=== PATIENT | male | born 1975 | race American Indian/Alaskan Native ===

== ENCOUNTER 2021-10-01 16:15 | Inpatient (IN) | payer OTHER ==
--- NOTE | 2021-10-01 16:29 | Emergency Department Report ---
HPI - General Chief Complaint: Neuro Symptoms/Deficit Time Seen by Provider: 10/01/21 16:17 - HPI HPI: 46-year-old male with no known past medical history presents via EMS as a stroke alert due to acute right-sided weakness. According to the EMS report, just prior to arrival the patient reported feeling dizzy, he sat down on the ground and then syncopized, falling back and losing consciousness for about 10 seconds according to bystanders. When he awoke he developed significant right-sided weakness which is more significant in the lower extremities and the upper extremity. He is also slightly confused although he is oriented. He does report that his blood pressure has been elevated for the past week. Other than the weakness and when prompted, noted numbness of the right lower extremity, he denies any symptoms currently. According to the EMS report his fingerstick blood glucose was 71. His blood pressure was 170/90 with heart rate of 95 and 100% saturation on room air. His last known well time was 1540 today. Further details of the HPI are limited due to the patient's current clinical condition. ED Past Medical Hx - Past Medical History Previous Medical History?: No ED Review of Systems ROS: Stated complaint: STROKE Other details as noted in HPI Comment: All other systems reviewed and negative Constitutional: denies: chills, fever Eyes: denies: eye pain, vision change ENT: denies: throat pain, congestion Respiratory: denies: cough, shortness of breath Cardiovascular: syncope. denies: chest pain, palpitations Gastrointestinal: denies: abdominal pain, nausea, vomiting Genitourinary: denies: dysuria, frequency Musculoskeletal: denies: back pain Skin: denies: rash, lesions Neurological: weakness, numbness. denies: headache, confusion Physical Exam - Physical Exam Physical Exam: GENERAL: Well developed and well nourished. No acute distress HEAD: Normocephalic. No obvious signs of trauma. ENT: Moist mucous membranes. EYES: Extraocular movements are intact. Pupils are equal round and reactive to light bilaterally NECK: Supple. Full ROM is intact. Trachea is midline. LUNGS: Nonlabored breathing. Equal chest rise bilaterally. Clear to auscultation bilaterally. CARDIOVASCULAR: Regular rate and rhythm. No murmurs or rubs. VASCULAR: Cap refill < 2 seconds. 2+ peripheral pulses in all 4 extremities. ABDOMEN: Abdomen is soft and nondistended. There is no significant tenderness, guarding or rebound. SKIN: Skin is warm and dry NEURO: Patient is awake, alert, and oriented. social and human services assistant II-XII grossly intact. There is mild weakness of the right upper extremity and no ability to move the right lower extremity. Sensation is intact throughout the face and bilateral upper extremities as well as the abdomen and left lower extremity but there is decreased sensation to light touch noted over the right distal leg and foot. Normal speech. NIH stroke scale score 5 MUSCULOSKELETAL: No obvious deformities. No significant tenderness. Normal ROM throughout. BACK/SPINE: No costovertebral angle tenderness. ED Medical Decision Making - Lab Data Result diagrams: 10/01/21 16:35 10/01/21 16:35 Labs 10/01/21 10/01/21 10/01/21 16:35 16:35 16:35 WBC 6.1 RBC 5.23 H Hgb 14.6 Hct 44.6 MCV 85 MCH 28 MCHC 33 RDW 13.7 Plt Count 206 Lymph % (Auto) 24.5 [place] % (Auto) 9.8 H Eos % (Auto) 1.5 Baso % (Auto) 0.6 Lymph # (Auto) 1.5 [place] # (Auto) 0.6 Eos # (Auto) 0.1 Baso # (Auto) 0.0 Seg Neutrophils % 63.6 Seg Neutrophils # 3.9 PT 13.9 INR 0.96 APTT 26.4 Thrombin Time 17.5 Sodium 135 L Potassium 4.0 Chloride 98.2 Carbon Dioxide 22 Anion Gap 19 BUN 11 Creatinine 1.1 Estimated GFR > 60 BUN/Creatinine Ratio 10 Glucose 141 H Calcium 8.7 Total Bilirubin 0.30 AST 39 ALT 39 Alkaline Phosphatase 124 Total Creatine Kinase 375 H CK-MB (CK-2) 3.1 CK-MB (CK-2) Rel Index 0.8 Troponin T < 0.010 Total Protein 7.0 Albumin 4.2 Albumin/Globulin Ratio 1.5 Plasma/Serum Alcohol 10/01/21 16:35 WBC RBC Hgb Hct MCV MCH MCHC RDW Plt Count Lymph % (Auto) [place] % (Auto) Eos % (Auto) Baso % (Auto) Lymph # (Auto) [place] # (Auto) Eos # (Auto) Baso # (Auto) Seg Neutrophils % Seg Neutrophils # PT INR APTT Thrombin Time Sodium Potassium Chloride Carbon Dioxide Anion Gap BUN Creatinine Estimated GFR BUN/Creatinine Ratio Glucose Calcium Total Bilirubin AST ALT Alkaline Phosphatase Total Creatine Kinase CK-MB (CK-2) CK-MB (CK-2) Rel Index Troponin T Total Protein Albumin Albumin/Globulin Ratio Plasma/Serum Alcohol < 0.01 - Radiology Data Radiology results: report reviewed - Medical Decision Making 46-year-old male brought in by EMS as a stroke alert after experiencing a syncopal episode and then waking up with weakness of the right side, right lower extremity more than the right upper extremity. His last known normal time was 1540. On physical examination he has no ability to move the right lower extremity and has distal decreased sensation to light touch of that extremity. He has mild weakness of the right upper extremity but no sensory loss. Cranial nerves are intact and there is no facial droop. His NIH stroke scale score is 5. Although the patient's symptoms may be sequela of Matthew's paralysis as a result of possible seizure-like activity, stroke alert was initiated with full set of labs and CT as well as CTA of the head and neck to assess for evidence of large vessel occlusion I spoke with Dr. Mendoza of teleneurology who states that she does not feel comfortable giving TPA in the patient's deficits are resolving when she spoke to the patient. She agrees that the patient's symptoms may be a manifestation of Matthew's paralysis. At 4:40 PM, the patient is now fully moving his right lower extremity and says all of his deficits have resolved. Labs reveal no significant leukocytosis or anemia. Kidney function is normal and there are no significant electrolyte abnormalities. At 4:43 PM I spoke with radiology who states that Noncon CT of the head reveals no acute abnormalities CTA of the head and neck reveals no evidence of large vessel occlusion but there is a focal area of narrowing which is moderate to high-grade in the MCA trifurcation on the right. I spoke with Dr. Mendoza at 645 regarding the CTA findings and she states that with these findings she recommends admission for MRI. In addition, the patient will need further work-up for syncope. Aspirin has been ordered. The results and need for admission were discussed with patient expressed understanding agreement with the plan of care. 6:50 PM I spoke with Dr. Valdez, the on-call hospitalist regarding the case who accepts the patient for admission will assume care. Critical Care Time: Yes Critical care time in (mins) excluding proc time.: 40 Critical care attestation.: If time is entered above; I have spent that time in minutes in the direct care of this critically ill patient, excluding procedure time. Critical care time was spent in the evaluation/assessment, work-up, and management of stroke and syncope requiring stroke alert initiation with advanced imaging, discussion with specialist, and frequent reassessment and reevaluation. ED Disposition Clinical Impression: Stroke, Syncope, Hypertension, Abnormal computed tomography angiography of head Disposition: ADMITTED INPATIENT Is pt being admited?: Yes Condition: Serious - Assessment Assessment Interval: Baseline - Level of Consciousness 1a. Level of Consciousness: alert/keenly responsive - LOC Questions 1b. LOC Questions: answers both correctly - LOC Command 1c. LOC Commands: performs tasks correctly - Best Gaze 2. Best Gaze: normal - Visual 3. Visual: no visual loss - Facial Palsy 4. Facial Palsy: normal symmetrical movement - Motor Arm 5a. Motor Arm Left: no drift 5b. Motor Arm Right: no drift - Motor Leg 6a. Motor Leg Left: no drift 6b. Motor Leg Right: no movement - Limb Ataxia 7. Limb Ataxia: absent - Sensory 8. Sensory: mild/moderate sensory loss - Best Language 9. Best Language: no aphasia - Dysarthria 10. Dysarthria: normal - Extinction and Inattention 11. Extinction/Inattention: no abnormality - Scoring Total Score: 5 Stroke Severity: Moderate Stroke
[2021-10-01 16:48] LABS: Basophils % (Auto) 0.6 % (0.0-1.8); Eosinophils # (Auto) 0.1 K/mm3 (0.0-0.4); Eosinophils % (Auto) 1.5 % (0.0-4.3); Hematocrit 44.6 % (35.5-45.6); Hemoglobin 14.6 gm/dl (11.8-15.2); Lymphocytes # (Auto) 1.5 K/mm3 (1.2-5.4); Lymphocytes % (Auto) 24.5 % (13.4-35.0); Mean Corpuscular HGB Conc 33 % (32-34); Mean Corpuscular Volume 85 fl (84-94); Monocytes # (Auto) 0.6 K/mm3 (0.0-0.8); Monocytes % (Auto) 9.8 % (0.0-7.3); Platelet Count 206 K/mm3 (140-440); Red Blood Count 5.23 M/mm3 (3.65-5.03); Red Cell Distribution Width 13.7 % (13.2-15.2)
--- NOTE | 2021-10-01 16:49 | Cat Scan Report ---
CT head/brain wo con INDICATION / CLINICAL INFORMATION: 46 years Male; CODE STROKE CALL ER MAIN AT 8199 Stroke symptoms. TECHNIQUE: Routine CT head without contrast. All CT scans at this location are performed using CT dos e reduction for ALARA by means of automated exposure control. COMPARISON: None. FINDINGS: BRAIN / INTRACRANIAL CONTENTS: No acute hemorrhage, mass effect, midline shift, hydrocephalus, or acu te, large territorial infarct. No signs of significant atrophy or chronic infarct. No significant whi te matter abnormality seen. CRANIOCERVICAL JUNCTION: No significant abnormality. ORBITS: No significant abnormality of visualized orbits. SINUSES / MASTOIDS: Mild to moderate mucosal thickening in the ethmoids. Mild mucosal thickening seen in the right maxillary antrum. ADDITIONAL FINDINGS: None. IMPRESSION: 1. No focal mass, hemorrhage, hydrocephalus, or acute, large territorial infarct. CODE STROKE: Exam Completed (ONCOLOGY NAVIGATOR/CDT): 10/01/2021 3:33 PM Exam Reviewed (ONCOLOGY NAVIGATOR/CDT): 3:38 PM Time of Communication (ONCOLOGY NAVIGATOR/CDT): 3:42 PM Licensed Practitioner Receiving Report: Dr. Verdin Signer Name: Anthony Rios MD, III Signed: 10/01/2021 4:45 PM Workstation Name: [id number]
[2021-10-01 16:58] LABS: INR 0.96 (0.87-1.13)
[2021-10-01 16:59] LABS: Partial Thromboplastin Time 26.4 Sec. (24.2-36.6); Thrombin Time 17.5 Sec. (15.1-19.6)
--- NOTE | 2021-10-01 17:09 | Cat Scan Report ---
CT angio head INDICATION / CLINICAL INFORMATION: 46 years Male; CODE STROKE CALL ER MAIN AT 8199 OMNI 350 100 ML stroke sx. TECHNIQUE: Thin cut axial images obtained through the head during IV bolus contrast administration. S agittal, coronal, and 3 plane MIP reconstructions performed by the technologist. NASCET type criteria used evaluate stenoses. Automated exposure control utilized for radiation reduction purposes. . Poor bolus timing or low injection rate suspected. COMPARISON: None available. FINDINGS: INTERNAL CAROTID ARTERIES: No significant narrowing appreciated. Minimal atherosclerotic disease note d. VERTEBROBASILAR SYSTEM: No significant narrowing appreciated. DISTAL BRANCHES: Distal branches of the anterior, middle, and posterior cerebral arteries are fairly symmetric in appearance and number. Focal area of moderate to high-grade narrowing is seen in an MCA trifurcation branch on the left. ANEURYSM: None identified. ADDITIONAL FINDINGS: Remainder of the surrounding soft tissues are grossly normal. IMPRESSION: 1. No evidence of large vessel occlusion on this CTA of the head. [place] 2. Focal area of narrowing suggested in an MCA trifurcation branch on the right. Signer Name: Anthony Rios MD, III Signed: 10/01/2021 5:04 PM Workstation Name: [id number]
--- NOTE | 2021-10-01 17:10 | Emergency Department Report ---
Blank Doc - Documentation Documentation: [facility] Consult Note # Demographics Consult Type: Acute Stroke Level 1 (0-4.5 hrs) Patient Location: Emergency Room First Name: Reinaldo Last Name: Anil Age: 46 Gender: Male Facility: [facility] Time of Initial Page ( Time): 10/01/2021, 16:05 Time of Return Call ( Time): 10/01/2021, 16:05 # HPI History: 46yo M presents after feeling dizziness, sat down and then had a short syncopal episode. after having right sided weakness pt reports he drank a beer and then felt dizziness. he sat down. then has a difficult time explainign what happened pt seen after CT as getting a scan before be could be evaluated # Scores Time of exam and NIHSS (): 10/01/2021, 16:20 Level of Consciousness 1a: [0] = Alert; keenly responsive LOC Questions 1b: [0] = Answers both questions correctly LOC Commands 1c: [0] = Performs both tasks correctly Best Gaze 2: [0] = Normal Visual 3: [0] = No visual loss Facial Palsy 4: [0] = Normal symmetrical movements Motor Arm Left 5a: [0] = No drift Motor Arm Right 5b: [0] = No drift Motor Leg Left 6a: [0] = No drift Motor Leg Right 6b: [0] = No drift Limb Ataxia 7: [0] = Absent Sensory 8: [0] = Normal Best Language 9: [0] = No aphasia Dysarthria 10: [0] = Normal Extinction and Inattention 11: [0] = No abnormality NIHSS Total: 0 # PMH-FH-SH Past Medical History: hypertension # Assessment Impression: 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 syncope much less likely with the weakness after # Plan Thrombolytic/Intervention: NOT IV Thrombolysis or IA Intervention candidate Thrombolytic Exclusion (< 3 hour window): non-disabling deficit Intraarterial Exclusion: non-disabling Thrombolytic/Intraarterial Exclusion: IV thrombolytic and IA intervention considered but not recommended as this patient's symptoms are not clinically consistent with an assumed diagnosis of stroke Imaging: (urgency: STAT): CT Angiogram Head and CT Angiogram Neck AND call back with results if abnormal Imaging: (urgency: routine): MRI Brain with AND without contrast Diagnostic Test: EEG # [employer] Telemedicine: Interactive 2 way audio and visual telecommunication technology was utilized during this visit
--- NOTE | 2021-10-01 17:13 | XRay Report ---
CHEST 1 VIEW 10/01/2021 4:43 PM INDICATION / CLINICAL INFORMATION: stroke. COMPARISON: None available. FINDINGS: SUPPORT DEVICES: None. HEART / MEDIASTINUM: No significant abnormality. LUNGS / PLEURA: No significant pulmonary or pleural abnormality. No pneumothorax. ADDITIONAL FINDINGS: Gastric distention. IMPRESSION: No significant infiltrate. Signer Name: Ryne Fernandez MD Signed: 10/01/2021 5:09 PM Workstation Name: [id number]
--- NOTE | 2021-10-01 17:21 | Cat Scan Report ---
CT angio neck INDICATION / CLINICAL INFORMATION: 46 years Male; CODE STROKE CALL ER MAIN AT 8199 OMNI 350 100 ML stroke sx. TECHNIQUE: Thin cut axial images obtained through the head during IV bolus contrast administration. S agittal, coronal, and 3 plane MIP reconstructions performed by the technologist. NASCET type criteria used evaluate stenoses. All CT scans at this location are performed using CT dose reduction for ALAR A by means of automated exposure control. . COMPARISON: None available. FINDINGS: ARCH: Normal aortic arch branching suggested. Right subclavian artery is not well visualized, which m ay be related to dense contrast in the right subclavian vein. CAROTID ARTERIES: The visualized common and internal carotid arteries are widely patent. VERTEBRAL ARTERIES: Slight right dominant vertebral system seen. No significant stenosis appreciated. ADDITIONAL FINDINGS: Mild degenerative changes in the cervical spine. Mild to moderate mucosal thickening seen in the maxillary antra and ethmoids. IMPRESSION: No significant stenosis appreciated on this CTA of the neck. Signer Name: Anthony Rios MD, III Signed: 10/01/2021 5:17 PM Workstation Name: [id number]
[2021-10-01 18:02] LABS: Creatine Kinase MB 3.1 ng/mL (0.0-4.0)
[2021-10-01 18:03] LABS: Alanine Aminotransferase 39 units/L (7-56); Albumin 4.2 g/dL (3.9-5); BUN/Creatinine Ratio 10; Blood Urea Nitrogen 11 mg/dL (9-20); Calcium 8.7 mg/dL (8.4-10.2); Hemolysis Index 7
[2021-10-01 18:27] LABS: Bilirubin,Urine NEG (Negative); Blood,Urine NEG (Negative); Color,Urine Colorless (Yellow); Protein,Urine <15 mg/dL mg/dL (Negative); Urobilinogen,Urine < 2.0 mg/dL (<2.0)
[2021-10-01 18:35] LABS: Amphetamine Screen,Urine Negative; Benzodiazepines Screen,Urine Negative; Cannabinoid Screen,Urine Negative; Cocaine Screen,Urine Negative; Methadone Screen,Urine Negative; Opiate Screen,Urine Negative
[2021-10-01] MEDS ORDERED: ASPIRIN EC 325 MG TAB PO ONE (18:52)
[2021-10-01] MEDS ORDERED: ACETAMINOPHEN 325 MG TAB PO PRN (18:53)
[2021-10-01] MEDS ORDERED: METOCLOPRAMIDE 10 MG TAB PO PRN (18:53)
[2021-10-01] MEDS ORDERED: oxyCODONE /ACETAMINOPHEN 5-325MG TAB PO PRN (18:53)
[2021-10-01] MEDS ORDERED: HYDROmorphone 1 MG/1 ML INJ IV PRN (18:53)
[2021-10-01] MEDS ORDERED: ONDANSETRON 4 MG/2 ML INJ IV PRN (18:53)
[2021-10-01] MEDS ORDERED: ALBUTEROL 2.5 MG/3 ML NEBU IH PRN (18:53)
[2021-10-01] MEDS ORDERED: PROMETHAZINE 25 MG RECT SUPP PR PRN (18:53)
[2021-10-01] MEDS ORDERED: MAGNESIUM HYDROXIDE (MOM) ORAL LIQD UDC PO PRN (18:53)
--- NOTE | 2021-10-01 18:56 | History and Physical Report ---
History of Present Illness Chief complaint: I passed out History of present illness: 46 YO Male with No PMH presents to ED for evaluation. Patient reports "I get dizzy and I passed out". Patient states that he was in his usual state of health and experienced a sudden onset of dizziness followed by loss of consciousness. Patient awakened to have slurred speech with right-sided weakness. EMS was notified and upon arrival the patient was found to be in distress with a neurologic deficit. A code stroke was called and the patient was transported to [facility] for further care and evaluation of the aforementioned symptoms. The patient was seen and evaluated in the emergency department. All lab and imaging studies reviewed. Patient found to have symptoms consistent with CVA. The patient was admitted to telemetry and initiated on CVA protocol due to increased risk of worsening symptoms. Patient denies fever, chills, chest pain, palpitation, productive cough, skin rash or recent contact, trauma, known exposure to COVID-19. No prior admission for review. No medication listed at time of admission for reconciliation. Advanced care planning conducted in ED. Teleneurology consulted in ED. Past History Past Medical History: No medical history, other (Reviewed ) Past Surgical History: No surgical history, Other (Reviewed) Social history: single. denies: smoking, alcohol abuse, prescription drug abuse Family history: hypertension Medications and Allergies Allergies Allergy/AdvReac Type Severity Reaction Status Date / Time No Known Allergies Allergy Verified 10/01/21 16:37 Active Meds: Active Medications Acetaminophen (Acetaminophen 325 Mg Tab) 650 mg PO Q4H PRN PRN Reason: Pain, Mild (1-3) Albuterol (Albuterol 2.5 Mg/3 Ml Nebu) 2.5 mg IH Q3HRT PRN PRN Reason: Shortness Of Breath Aspirin (Aspirin 325 Mg Tab) 325 mg PO QDAY JEFFREY Atorvastatin Calcium (Atorvastatin 40 Mg Tab) 40 mg PO QHS JEFFREY Bisacodyl (Bisacodyl 10 Mg Rect Supp) 10 mg AR QDAY PRN PRN Reason: Constipation Hydromorphone HCl (Hydromorphone 1 Mg/1 Ml Inj) 0.5 mg IV Q23H PRN PRN Reason: Pain , Severe (7-10) Magnesium Hydroxide (Magnesium Hydroxide (Mom) Oral Liqd Udc) 30 ml PO Q4H PRN PRN Reason: Constipation Metoclopramide HCl (Metoclopramide 10 Mg Tab) 10 mg PO Q6H PRN PRN Reason: Nausea And Vomiting Ondansetron HCl (Ondansetron 4 Mg/2 Ml Inj) 4 mg IV Q8H PRN PRN Reason: Nausea And Vomiting Oxycodone/Acetaminophen (Oxycodone /Acetaminophen 5-325mg Tab) 1 tab PO Q16H PRN PRN Reason: Pain, Moderate (4-6) Promethazine HCl (Promethazine 25 Mg Rect Supp) 25 mg AR Q6H PRN PRN Reason: Nausea And Vomiting Sodium Chloride (Sodium Chloride 0.9% 10 Ml Flush Syringe) 10 ml INJ PRN PRN PRN Reason: LINE FLUSH Review of Systems Constitutional: no weight loss, no weight gain, no fever, no chills Ears, nose, mouth and throat: no deferred, no ear pain, no ear discharge, no nasal congestion Cardiovascular: no chest pain, no palpitations, no rapid/irregular heart beat, no edema, no syncope Respiratory: no cough, no excessive sputum Gastrointestinal: no abdominal pain, no vomiting, no change in bowel habits, no hematemesis Genitourinary Male: no hematuria, no flank pain, no discharge, no urinary frequency, no urinary hesitancy Rectal: no pain, no incontinence, no bleeding Musculoskeletal: no arm numbness/tingling, no low back pain, no leg numbness/tingling Integumentary: no rash, no pruritis, no sores, no wounds, no jaundice Neurological: syncope, gait dysfunction, motor disturbance Psychiatric: no anxiety, no memory loss, no change in sleep habits, no sleep disturbances, no hypersomnia Endocrine: no cold intolerance, no heat intolerance, no polyphagia, no polydipsia, no polyuria Hematologic/Lymphatic: no easy bruising, no easy bleeding, no lymphedema Allergic/Immunologic: no urticaria, no allergic rhinitis, no wheezing, no persistent infections Exam - Constitutional Vitals: Temp Pulse Resp BP Pulse Ox 98.6 F 86 21 175/87 100 10/01/21 16:51 10/01/21 16:45 10/01/21 16:45 10/01/21 16:45 10/01/21 16:45 General appearance: Present: mild distress - EENT Eyes: Present: PERRL ENT: hearing intact, clear oral mucosa - Neck Neck: Present: supple, normal ROM - Respiratory Respiratory effort: normal Respiratory: bilateral: CTA - Cardiovascular Heart Sounds: Present: S1 & S2. Absent: rub, click - Extremities Extremities: pulses symmetrical, No edema Peripheral Pulses: within normal limits - Abdominal General gastrointestinal: Present: soft, non-tender, non-distended, normal bowel sounds Male genitourinary: Present: normal - Integumentary Integumentary: Present: clear, warm, dry - Musculoskeletal Musculoskeletal: gait normal, strength equal bilaterally - Psychiatric Psychiatric: appropriate mood/affect, intact judgment & insight - Neurologic Neurologic: CNII-XII intact, moves all extremities HEART Score - HEART Score Troponin: Troponin T < 0.010 ng/mL (0.00-0.029) 10/01/21 16:35 Results - Labs CBC & Chem 7: 10/01/21 16:35 10/01/21 16:35 Labs: Abnormal lab results 10/01/21 10/01/21 10/01/21 Range/Units 16:35 16:35 Unknown RBC 5.23 H (3.65-5.03) M/mm3 [place] % (Auto) 9.8 H (0.0-7.3) % Sodium 135 L (137-145) mmol/L Glucose 141 H (75-100) mg/dL Total Creatine Kinase 375 H (55-170) units/L Urine pH 8.0 H (5.0-7.0) Assessment and Plan - Patient Problems (1) CVA (cerebral vascular accident) Current Visit: Yes Status: Acute Plan to address problem: CVA protocol: CT head, neuro check, seizure cautions, aspiration precautions, fall precautions, physical therapy consulted, Occupational Therapy consulted, speech therapy consulted, antiplatelet therapy, echocardiogram, carotid Doppler. (2) DVT prophylaxis Current Visit: Yes Status: Acute Plan to address problem: SCD to bilateral lower extremities while in bed (3) Advance care planning Current Visit: Yes Status: Acute Plan to address problem: Disease education conducted, care plan discussed, diagnoses discussed, prognosis discussed, patient is full code. Patient knowledges understanding and agreement with care plan, +30 minutes.
[2021-10-01 23:20] LABS: Creatine Kinase MB 2.4 ng/mL (0.0-4.0)
--- NOTE | 2021-10-02 08:15 | Progress Note ---
Assessment and Plan Assessment and plan: 46 YO Male with No PMH presents to ED for evaluation of slurred speech with right-sided weakness. EMS was notified and upon arrival the patient was found to be in distress with a neurologic deficit. A code stroke was called and the patient was transported to [facility] for further care and evaluation of the a forementioned symptoms. The patient was seen and evaluated in the emergency department. All lab and imaging studies reviewed. Blood pressure in the emergency department was noted to be as high as 205/110. Patient found to have symptoms consistent with CVA. The patient was admitted to telemetry and initiated on CVA protocol due to increased risk of worsening symptoms. CVA Accelerated hypertension. (Undiagnosed) 10/02/2021. Continue CVA protocol. CTA of the head and neck reveals focal area of narrowing suggested in MCA trifurcation branch on the right. Follow-up echocardiogram and order MRI. We will also order neurology consultation. PT/OT. Continue secondary prevention with aspirin and Lipitor. Allow for permissive hypertension for now and then start antihypertensive medications History Interval history: No new issues overnight. Hospitalist Physical - Constitutional Vitals: Temp Pulse Resp BP Pulse Ox 98.2 F 83 18 135/85 99 10/02/21 03:36 10/02/21 03:36 10/02/21 03:36 10/02/21 03:36 10/02/21 03:36 General appearance: Present: no acute distress - EENT Eyes: Present: PERRL, EOM intact ENT: hearing intact, clear oral mucosa, dentition normal - Neck Neck: Present: supple, normal ROM - Respiratory Respiratory effort: normal Respiratory: bilateral: CTA - Cardiovascular Rhythm: regular Heart Sounds: Present: S1 & S2. Absent: gallop, rub - Extremities Extremities: no ischemia, No edema, Full ROM - Abdominal General gastrointestinal: soft, non-tender, non-distended, normal bowel sounds - Integumentary Integumentary: Present: clear, warm, dry - Neurologic Neurologic: CNII-XII intact, moves all extremities HEART Score - HEART Score Troponin: Troponin T < 0.010 ng/mL (0.00-0.029) 10/01/21 22:32 Results - Labs CBC & Chem 7: 10/01/21 16:35 10/01/21 16:35 Labs: Laboratory Last Values WBC 6.1 K/mm3 (4.5-11.0) 10/01/21 16:35 RBC 5.23 M/mm3 (3.65-5.03) H 10/01/21 16:35 Hgb 14.6 gm/dl (11.8-15.2) 10/01/21 16:35 Hct 44.6 % (35.5-45.6) 10/01/21 16:35 MCV 85 fl (84-94) 10/01/21 16:35 MCH 28 pg (28-32) 10/01/21 16:35 MCHC 33 % (32-34) 10/01/21 16:35 RDW 13.7 % (13.2-15.2) 10/01/21 16:35 Plt Count 206 K/mm3 (140-440) 10/01/21 16:35 Lymph % (Auto) 24.5 % (13.4-35.0) 10/01/21 16:35 [place] % (Auto) 9.8 % (0.0-7.3) H 10/01/21 16:35 Eos % (Auto) 1.5 % (0.0-4.3) 10/01/21 16:35 Baso % (Auto) 0.6 % (0.0-1.8) 10/01/21 16:35 Lymph # (Auto) 1.5 K/mm3 (1.2-5.4) 10/01/21 16:35 [place] # (Auto) 0.6 K/mm3 (0.0-0.8) 10/01/21 16:35 Eos # (Auto) 0.1 K/mm3 (0.0-0.4) 10/01/21 16:35 Baso # (Auto) 0.0 K/mm3 (0.0-0.1) 10/01/21 16:35 Seg Neutrophils % 63.6 % (40.0-70.0) 10/01/21 16:35 Seg Neutrophils # 3.9 K/mm3 (1.8-7.7) 10/01/21 16:35 PT 13.9 Sec. (12.2-14.9) 10/01/21 16:35 INR 0.96 (0.87-1.13) 10/01/21 16:35 APTT 26.4 Sec. (24.2-36.6) 10/01/21 16:35 Thrombin Time 17.5 Sec. (15.1-19.6) 10/01/21 16:35 Sodium 135 mmol/L (137-145) L 10/01/21 16:35 Potassium 4.0 mmol/L (3.6-5.0) 10/01/21 16:35 Chloride 98.2 mmol/L (98-107) 10/01/21 16:35 Carbon Dioxide 22 mmol/L (22-30) 10/01/21 16:35 Anion Gap 19 mmol/L 10/01/21 16:35 BUN 11 mg/dL (9-20) 10/01/21 16:35 Creatinine 1.1 mg/dL (0.8-1.3) 10/01/21 16:35 Estimated GFR > 60 ml/min 10/01/21 16:35 BUN/Creatinine Ratio 10 % 10/01/21 16:35 Glucose 141 mg/dL (75-100) H 10/01/21 16:35 Calcium 8.7 mg/dL (8.4-10.2) 10/01/21 16:35 Total Bilirubin 0.30 mg/dL (0.1-1.2) 10/01/21 16:35 AST 39 units/L (5-40) 10/01/21 16:35 ALT 39 units/L (7-56) 10/01/21 16:35 Alkaline Phosphatase 124 units/L (35-129) 10/01/21 16:35 Total Creatine Kinase 366 units/L (55-170) H 10/01/21 22:32 CK-MB (CK-2) 2.4 ng/mL (0.0-4.0) 10/01/21 22:32 CK-MB (CK-2) Rel Index 0.6 (0-4) 10/01/21 22:32 Troponin T < 0.010 ng/mL (0.00-0.029) 10/01/21 22:32 Total Protein 7.0 g/dL (6.3-8.2) 10/01/21 16:35 Albumin 4.2 g/dL (3.9-5) 10/01/21 16:35 Albumin/Globulin Ratio 1.5 % 10/01/21 16:35 Urine Color Colorless (Yellow) 10/01/21 Unknown Urine Turbidity Clear (Clear) 10/01/21 Unknown Urine pH 8.0 (5.0-7.0) H 10/01/21 Unknown Ur Specific [place] 1.005 (1.003-1.030) 10/01/21 Unknown Urine Protein <15 mg/dl mg/dL (Negative) 10/01/21 Unknown Urine Glucose (UA) Neg mg/dL (Negative) 10/01/21 Unknown Urine Ketones Neg mg/dL (Negative) 10/01/21 Unknown Urine Blood Neg (Negative) 10/01/21 Unknown Urine Nitrite Neg (Negative) 10/01/21 Unknown Urine Bilirubin Neg (Negative) 10/01/21 Unknown Urine Urobilinogen < 2.0 mg/dL (<2.0) 10/01/21 Unknown Ur Leukocyte Esterase Neg (Negative) 10/01/21 Unknown Urine WBC (Auto) 1.0 /HPF (0.0-6.0) 10/01/21 Unknown Urine RBC (Auto) 1.0 /HPF (0.0-6.0) 10/01/21 Unknown Urine Opiates Screen Negative 10/01/21 Unknown Urine Methadone Screen Negative 10/01/21 Unknown Ur Barbiturates Screen Negative 10/01/21 Unknown Ur Phencyclidine Scrn Negative 10/01/21 Unknown Ur Amphetamines Screen Negative 10/01/21 Unknown U Benzodiazepines Scrn Negative 10/01/21 Unknown Urine Cocaine Screen Negative 10/01/21 Unknown U Marijuana (THC) Screen Negative 10/01/21 Unknown Drugs of Abuse Note Disclamer 10/01/21 Unknown Plasma/Serum Alcohol < 0.01 % (0-0.07) 10/01/21 16:35 Parker/IV: Voiding Method Urinal Active Medications - Current Medications Current Medications: Generic Name Dose Route Start Last Admin Trade Name Freq PRN Reason Stop Dose Admin Acetaminophen 650 mg 10/01/21 18:53 Acetaminophen 325 Mg Tab PO Q4H PRN Pain, Mild (1-3) Albuterol 2.5 mg 10/01/21 18:53 Albuterol 2.5 Mg/3 Ml Nebu IH Q3HRT PRN Shortness Of Breath Aspirin 325 mg 10/02/21 10:00 Aspirin 325 Mg Tab PO QDAY JEFFREY Atorvastatin Calcium 40 mg 10/01/21 22:00 10/01/21 22:56 Atorvastatin 40 Mg Tab PO 40 mg QHS JEFFREY Administration Bisacodyl 10 mg 10/01/21 18:53 Bisacodyl 10 Mg Rect Supp [place] QDAY PRN Constipation Hydromorphone HCl 0.5 mg 10/01/21 18:53 Hydromorphone 1 Mg/1 Ml Inj IV Q23H PRN Pain , Severe (7-10) Magnesium Hydroxide 30 ml 10/01/21 18:53 Magnesium Hydroxide (Mom) Oral Liqd Udc PO Q4H PRN Constipation Metoclopramide HCl 10 mg 10/01/21 18:53 Metoclopramide 10 Mg Tab PO Q6H PRN Nausea And Vomiting Ondansetron HCl 4 mg 10/01/21 18:53 Ondansetron 4 Mg/2 Ml Inj IV Q8H PRN Nausea And Vomiting Oxycodone/Acetaminophen 1 tab 10/01/21 18:53 Oxycodone /Acetaminophen 5-325mg Tab PO Q16H PRN Pain, Moderate (4-6) Promethazine HCl 25 mg 10/01/21 18:53 Promethazine 25 Mg Rect Supp [place] Q6H PRN Nausea And Vomiting Sodium Chloride 10 ml 10/01/21 18:53 Sodium Chloride 0.9% 10 Ml Flush Syringe IV PRN PRN LINE FLUSH
[2021-10-02] MEDS: ASPIRIN 325 MG TAB PO SCH (10:11)
--- NOTE | 2021-10-03 08:45 | Consultation ---
History of Present Illness Consult date: 10/03/21 Reason for Consult: Dizziness and syncopy History of present illness: I passed out History of present illness: 46 YO Male with No PMH presents to ED for evaluation. Patient reports "I get dizzy and I passed out". Patient states that he was in his usual state of health and experienced a sudden onset of dizziness, he describes it as spinning sensation he was in sitting position according to him this lasted few minutes then he was out for few minutes denied stiffness or jerking but was limb as per his friend , denied bowel or bladder incontinence, denied any history of similar nature or seizure Patient awakened to have slurred speech with right-sided weakness. EMS was notified and upon arrival the patient was found to be in distress with a neurologic deficit. A code stroke was called and the patient was transported to [facility] for further care and evaluation of the aforementioned symptoms. The patient was seen and evaluated in the emergency department. All lab and imaging studies reviewed. Patient found to have symptoms consistent with CVA. The patient was admitted to telemetry and initiated on CVA protocol due to increased risk of worsening symptoms. Patient denies fever, chills, chest pain, palpitation, productive cough, skin rash or recent contact, trauma, known exposure to COVID-19. No p rior admission for review. No medication listed at time of admission for reconciliation. Advanced care planning conducted in ED. Teleneurology consulted in ED. Past History Past Medical History: No medical history, other (Reviewed ) Past Surgical History: No surgical history, Other (Reviewed) Social history: single. denies: smoking, alcohol abuse, prescription drug abuse Family history: hypertension Medications and Allergies Allergies Allergy/AdvReac Type Severity Reaction Status Date / Time No Known Allergies Allergy Verified 10/01/21 16:37 Active Meds: Active Medications Acetaminophen (Acetaminophen 325 Mg Tab) 650 mg PO Q4H PRN PRN Reason: Pain, Mild (1-3) Albuterol (Albuterol 2.5 Mg/3 Ml Nebu) 2.5 mg IH Q3HRT PRN PRN Reason: Shortness Of Breath Aspirin (Aspirin 325 Mg Tab) 325 mg PO QDAY JEFFREY Atorvastatin Calcium (Atorvastatin 40 Mg Tab) 40 mg PO QHS JEFFREY Bisacodyl (Bisacodyl 10 Mg Rect Supp) 10 mg IA QDAY PRN PRN Reason: Constipation Hydromorphone HCl (Hydromorphone 1 Mg/1 Ml Inj) 0.5 mg IV Q23H PRN PRN Reason: Pain , Severe (7-10) Magnesium Hydroxide (Magnesium Hydroxide (Mom) Oral Liqd Udc) 30 ml PO Q4H PRN PRN Reason: Constipation Metoclopramide HCl (Metoclopramide 10 Mg Tab) 10 mg PO Q6H PRN PRN Reason: Nausea And Vomiting Ondansetron HCl (Ondansetron 4 Mg/2 Ml Inj) 4 mg IV Q8H PRN PRN Reason: Nausea And Vomiting Oxycodone/Acetaminophen (Oxycodone /Acetaminophen 5-325mg Tab) 1 tab PO Q16H PRN PRN Reason: Pain, Moderate (4-6) Promethazine HCl (Promethazine 25 Mg Rect Supp) 25 mg IA Q6H PRN PRN Reason: Nausea And Vomiting Sodium Chloride (Sodium Chloride 0.9% 10 Ml Flush Syringe) 10 ml INJ PRN PRN PRN Reason: LINE FLUSH Review of Systems Constitutional: no weight loss, no weight gain, no fever, no chills Ears, nose, mouth and throat: no deferred, no ear pain, no ear discharge, no nasal congestion Cardiovascular: no chest pain, no palpitations, no rapid/irregular heart beat, no edema, no syncope Respiratory: no cough, no excessive sputum Gastrointestinal: no abdominal pain, no vomiting, no change in bowel habits, no hematemesis Genitourinary Male: no hematuria, no flank pain, no discharge, no urinary frequency, no urinary hesitancy Rectal: no pain, no incontinence, no bleeding Musculoskeletal: no arm numbness/tingling, no low back pain, no leg numbness/tingling Integumentary: no rash, no pruritis, no sores, no wounds, no jaundice Neurological: syncope, gait dysfunction, motor disturbance Psychiatric: no anxiety, no memory loss, no change in sleep habits, no sleep disturbances, no hypersomnia Endocrine: no cold intolerance, no heat intolerance, no polyphagia, no polydipsia, no polyuria Hematologic/Lymphatic: no easy bruising, no easy bleeding, no lymphedema Allergic/Immunologic: no urticaria, no allergic rhinitis, no wheezing, no persistent infections Past History Past Medical History: No medical history, other (Reviewed ) Past Surgical History: No surgical history, Other (Reviewed) Social history: single. denies: smoking, alcohol abuse, prescription drug abuse Family history: hypertension Medications and Allergies Allergies Allergy/AdvReac Type Severity Reaction Status Date / Time No Known Allergies Allergy Verified 10/01/21 16:37 Home Medications Medication Instructions Recorded Confirmed Last Taken Type No Known Home Medications [No 10/02/21 10/02/21 Unknown History Reported Home Medications] Active Meds: Active Medications Acetaminophen (Acetaminophen 325 Mg Tab) 650 mg PO Q4H PRN PRN Reason: Pain, Mild (1-3) Albuterol (Albuterol 2.5 Mg/3 Ml Nebu) 2.5 mg IH Q3HRT PRN PRN Reason: Shortness Of Breath Aspirin (Aspirin 325 Mg Tab) 325 mg PO QDAY [facility] Last Admin: 10/02/21 10:11 Dose: 325 mg Atorvastatin Calcium (Atorvastatin 40 Mg Tab) 40 mg PO QHS [facility] Last Admin: 10/02/21 22:07 Dose: 40 mg Bisacodyl (Bisacodyl 10 Mg Rect Supp) 10 mg IA QDAY PRN PRN Reason: Constipation Hydromorphone HCl (Hydromorphone 1 Mg/1 Ml Inj) 0.5 mg IV Q23H PRN PRN Reason: Pain , Severe (7-10) Magnesium Hydroxide (Magnesium Hydroxide (Mom) Oral Liqd Udc) 30 ml PO Q4H PRN PRN Reason: Constipation Metoclopramide HCl (Metoclopramide 10 Mg Tab) 10 mg PO Q6H PRN PRN Reason: Nausea And Vomiting Ondansetron HCl (Ondansetron 4 Mg/2 Ml Inj) 4 mg IV Q8H PRN PRN Reason: Nausea And Vomiting Oxycodone/Acetaminophen (Oxycodone /Acetaminophen 5-325mg Tab) 1 tab PO Q16H PRN PRN Reason: Pain, Moderate (4-6) Promethazine HCl (Promethazine 25 Mg Rect Supp) 25 mg IA Q6H PRN PRN Reason: Nausea And Vomiting Sodium Chloride (Sodium Chloride 0.9% 10 Ml Flush Syringe) 10 ml IV PRN PRN PRN Reason: LINE FLUSH Physical Examination - Vital Signs Vital Signs: Vital Signs Temp 98.4 F 10/01/21 16:18 - Constitutional General appearance: comfortable - EENT EENT: Present: PERRL, mucous membranes moist - Respiratory Respiratory: Present: lungs clear, rhonchi - Cardiovascular Cardiovascular: Present: regular rate, normal S1, normal S2 Extremities: Present: no peripheral edema bilatateraly, no clubbing, cyanosis - Gastrointestinal Gastrointestinal: Present: normoactive bowel sounds - Integumentary Integumentary: Present: normal - Neurologic Cranial nerve examination: PERRL, EOMI, intact Speech examination: intact Detailed motor examination: other (slight clumsiness in right leg and numbness distal with no radicular distribuation , he is unable to ambulate without help ,) - Level of Consciousness 1a. Level of Consciousness: alert/keenly responsive - LOC Questions 1b. LOC Questions: answers both correctly - LOC Command 1c. LOC Commands: performs tasks correctly - Best Gaze 2. Best Gaze: normal - Visual 3. Visual: no visual loss - Facial Palsy 4. Facial Palsy: normal symmetrical movement - Motor Arm 5a. Motor Arm Left: no drift 5b. Motor Arm Right: no drift - Motor Leg 6a. Motor Leg Left: no drift 6b. Motor Leg Right: drift - Limb Ataxia 7. Limb Ataxia: absent - Sensory 8. Sensory: mild/moderate sensory loss - Best Language 9. Best Language: no aphasia - Dysarthria 10. Dysarthria: normal - Extinction and Inattention 11. Extinction/Inattention: no abnormality - Scoring Total Score: 2 Stroke Severity: Minor Stroke Results - Laboratory Findings CBC and BMP: 10/01/21 16:35 10/01/21 16:35 Abnormal Lab Findings: Abnormal Labs 10/01/21 10/01/21 10/01/21 16:35 16:35 19:05 RBC 5.23 H [place] % (Auto) 9.8 H Sodium 135 L Glucose 141 H Total Creatine Kinase 375 H 399 H Urine pH 10/01/21 10/01/21 22:32 Unknown RBC [place] % (Auto) Sodium Glucose Total Creatine Kinase 366 H Urine pH 8.0 H Assessment and Plan Assessment and Plan 46 YO Male with No PMH presents to ED for evaluation. Patient reports "I get dizzy and I passed out". Patient states that he was in his usual state of health and experienced a sudden onset of dizziness followed by loss of consciousness. Patient awakened to have slurred speech with right-sided w eakness. EMS was notified and upon arrival the patient was found to be in distress with a neurologic deficit. A code stroke was called and the patient was transported to [facility] for further care and evaluation of the aforementioned symptoms. The patient was seen and evaluated in the emergency department. All lab and imaging studies reviewed. Patient found to have symptoms consistent with CVA. The patient was admitted to telemetry and initiated on CVA protocol due to increased risk of worsening symptoms. Patient denies fever, chills, chest pain, palpitation, productive cough, skin rash or recent contact, trauma, known exposure to COVID-19. No prior admission for review. No medication lis radha at time of admission for reconciliation. Advanced care planning conducted in ED. Teleneurology consulted in ED. - Patient Problems #CVA (cerebral vascular accident)he is with residual right leg clumsiness and numbness -CT brain is unremarkable -CTA is remarkable for stenosis in left MCA biforcation and A1 segment stenosis -echo is remarkable for Ef#55-60% -MRI brain is remarkable for left superior frontal and parietal infarct acute. -pt. is not a candidate for thrombectomy nor TPA -started on ASA 325 mg daily -Lipitor 40 mg daily -LDL is pending -US carotid is pending -cardioac monitering -PT/ST evaluate -UDS is unremarkable #Hx of hyperlipidemia -Lipid profil is pending -Lipitor 40 mg # DVT prophylaxis -SCD to bilateral lower extremities while in bed will follow
--- NOTE | 2021-10-03 09:24 | Progress Note ---
Assessment and Plan Assessment and plan: 46 YO Male with No PMH presents to ED for evaluation of slurred speech with right-sided weakness. EMS was notified and upon arrival the patient was found to be in distress with a neurologic deficit. A code stroke was called and the patient was transported to [facility] for further care and evaluation of the a forementioned symptoms. The patient was seen and evaluated in the emergency department. All lab and imaging studies reviewed. Blood pressure in the emergency department was noted to be as high as 205/110. Patient found to have symptoms consistent with CVA. The patient was admitted to telemetry and initiated on CVA protocol due to increased risk of worsening symptoms. CVA Accelerated hypertension. (Undiagnosed) 10/02/2021. Continue CVA protocol. CTA of the head and neck reveals focal area of narrowing suggested in MCA trifurcation branch on the right. Follow-up echocardiogram and order MRI. We will also order neurology consultation. PT/OT. Continue secondary prevention with aspirin and Lipitor. Allow for permissive hypertension for now and then start antihypertensive medications 10/03/2021. Await MRI brain for further evaluation. Neurology consultation pending. Echocardiogram reveals LVEF of 55 to 60% and no evidence of thromboembolic disease. However saline bubble contrast demonstrates PFO. We will check bilateral lower extremity Dopplers. BP much better controlled and off medications. Patient with transient accelerated hypertension. We will start low-dose beta-brianna for now. PT/OT. Continue secondary prevention with aspirin and Lipitor. History Interval history: No new issues overnight. Hospitalist Physical - Constitutional Vitals: Temp Pulse Resp BP Pulse Ox 98.3 F 67 14 123/67 97 10/03/21 08:23 10/03/21 08:23 10/03/21 03:42 10/03/21 08:23 10/03/21 08:23 General appearance: Present: no acute distress - EENT Eyes: Present: PERRL, EOM intact ENT: hearing intact, clear oral mucosa, dentition normal - Neck Neck: Present: supple, normal ROM - Respiratory Respiratory effort: normal Respiratory: bilateral: CTA - Cardiovascular Rhythm: regular Heart Sounds: Present: S1 & S2. Absent: gallop, rub - Extremities Extremities: no ischemia, No edema, Full ROM - Abdominal General gastrointestinal: soft, non-tender, non-distended, normal bowel sounds - Integumentary Integumentary: Present: clear, warm, dry - Neurologic Neurologic: CNII-XII intact, moves all extremities HEART Score - HEART Score Troponin: Troponin T < 0.010 ng/mL (0.00-0.029) 10/01/21 22:32 Results - Labs CBC & Chem 7: 10/01/21 16:35 10/01/21 16:35 Labs: Laboratory Last Values WBC 6.1 K/mm3 (4.5-11.0) 10/01/21 16:35 RBC 5.23 M/mm3 (3.65-5.03) H 10/01/21 16:35 Hgb 14.6 gm/dl (11.8-15.2) 10/01/21 16:35 Hct 44.6 % (35.5-45.6) 10/01/21 16:35 MCV 85 fl (84-94) 10/01/21 16:35 MCH 28 pg (28-32) 10/01/21 16:35 MCHC 33 % (32-34) 10/01/21 16:35 RDW 13.7 % (13.2-15.2) 10/01/21 16:35 Plt Count 206 K/mm3 (140-440) 10/01/21 16:35 Lymph % (Auto) 24.5 % (13.4-35.0) 10/01/21 16:35 [place] % (Auto) 9.8 % (0.0-7.3) H 10/01/21 16:35 Eos % (Auto) 1.5 % (0.0-4.3) 10/01/21 16:35 Baso % (Auto) 0.6 % (0.0-1.8) 10/01/21 16:35 Lymph # (Auto) 1.5 K/mm3 (1.2-5.4) 10/01/21 16:35 [place] # (Auto) 0.6 K/mm3 (0.0-0.8) 10/01/21 16:35 Eos # (Auto) 0.1 K/mm3 (0.0-0.4) 10/01/21 16:35 Baso # (Auto) 0.0 K/mm3 (0.0-0.1) 10/01/21 16:35 Seg Neutrophils % 63.6 % (40.0-70.0) 10/01/21 16:35 Seg Neutrophils # 3.9 K/mm3 (1.8-7.7) 10/01/21 16:35 PT 13.9 Sec. (12.2-14.9) 10/01/21 16:35 INR 0.96 (0.87-1.13) 10/01/21 16:35 APTT 26.4 Sec. (24.2-36.6) 10/01/21 16:35 Thrombin Time 17.5 Sec. (15.1-19.6) 10/01/21 16:35 Sodium 135 mmol/L (137-145) L 10/01/21 16:35 Potassium 4.0 mmol/L (3.6-5.0) 10/01/21 16:35 Chloride 98.2 mmol/L (98-107) 10/01/21 16:35 Carbon Dioxide 22 mmol/L (22-30) 10/01/21 16:35 Anion Gap 19 mmol/L 10/01/21 16:35 BUN 11 mg/dL (9-20) 10/01/21 16:35 Creatinine 1.1 mg/dL (0.8-1.3) 10/01/21 16:35 Estimated GFR > 60 ml/min 10/01/21 16:35 BUN/Creatinine Ratio 10 % 10/01/21 16:35 Glucose 141 mg/dL (75-100) H 10/01/21 16:35 Calcium 8.7 mg/dL (8.4-10.2) 10/01/21 16:35 Total Bilirubin 0.30 mg/dL (0.1-1.2) 10/01/21 16:35 AST 39 units/L (5-40) 10/01/21 16:35 ALT 39 units/L (7-56) 10/01/21 16:35 Alkaline Phosphatase 124 units/L (35-129) 10/01/21 16:35 Total Creatine Kinase 366 units/L (55-170) H 10/01/21 22:32 CK-MB (CK-2) 2.4 ng/mL (0.0-4.0) 10/01/21 22:32 CK-MB (CK-2) Rel Index 0.6 (0-4) 10/01/21 22:32 Troponin T < 0.010 ng/mL (0.00-0.029) 10/01/21 22:32 Total Protein 7.0 g/dL (6.3-8.2) 10/01/21 16:35 Albumin 4.2 g/dL (3.9-5) 10/01/21 16:35 Albumin/Globulin Ratio 1.5 % 10/01/21 16:35 Urine Color Colorless (Yellow) 10/01/21 Unknown Urine Turbidity Clear (Clear) 10/01/21 Unknown Urine pH 8.0 (5.0-7.0) H 10/01/21 Unknown Ur Specific [place] 1.005 (1.003-1.030) 10/01/21 Unknown Urine Protein <15 mg/dl mg/dL (Negative) 10/01/21 Unknown Urine Glucose (UA) Neg mg/dL (Negative) 10/01/21 Unknown Urine Ketones Neg mg/dL (Negative) 10/01/21 Unknown Urine Blood Neg (Negative) 10/01/21 Unknown Urine Nitrite Neg (Negative) 10/01/21 Unknown Urine Bilirubin Neg (Negative) 10/01/21 Unknown Urine Urobilinogen < 2.0 mg/dL (<2.0) 10/01/21 Unknown Ur Leukocyte Esterase Neg (Negative) 10/01/21 Unknown Urine WBC (Auto) 1.0 /HPF (0.0-6.0) 10/01/21 Unknown Urine RBC (Auto) 1.0 /HPF (0.0-6.0) 10/01/21 Unknown Urine Opiates Screen Negative 10/01/21 Unknown Urine Methadone Screen Negative 10/01/21 Unknown Ur Barbiturates Screen Negative 10/01/21 Unknown Ur Phencyclidine Scrn Negative 10/01/21 Unknown Ur Amphetamines Screen Negative 10/01/21 Unknown U Benzodiazepines Scrn Negative 10/01/21 Unknown Urine Cocaine Screen Negative 10/01/21 Unknown U Marijuana (THC) Screen Negative 10/01/21 Unknown Drugs of Abuse Note Disclamer 10/01/21 Unknown Plasma/Serum Alcohol < 0.01 % (0-0.07) 10/01/21 16:35 Parker/IV: Voiding Method Urinal Active Medications - Current Medications Current Medications: Generic Name Dose Route Start Last Admin Trade Name Freq PRN Reason Stop Dose Admin Acetaminophen 650 mg 10/01/21 18:53 Acetaminophen 325 Mg Tab PO Q4H PRN Pain, Mild (1-3) Albuterol 2.5 mg 10/01/21 18:53 Albuterol 2.5 Mg/3 Ml Nebu IH Q3HRT PRN Shortness Of Breath Aspirin 325 mg 10/02/21 10:00 10/02/21 10:11 Aspirin 325 Mg Tab PO 325 mg QDAY JEFFREY Administration Atorvastatin Calcium 40 mg 10/01/21 22:00 10/02/21 22:07 Atorvastatin 40 Mg Tab PO 40 mg QHS JEFFREY Administration Bisacodyl 10 mg 10/01/21 18:53 Bisacodyl 10 Mg Rect Supp OR QDAY PRN Constipation Hydromorphone HCl 0.5 mg 10/01/21 18:53 Hydromorphone 1 Mg/1 Ml Inj IV Q23H PRN Pain , Severe (7-10) Magnesium Hydroxide 30 ml 10/01/21 18:53 Magnesium Hydroxide (Mom) Oral Liqd Udc PO Q4H PRN Constipation Metoclopramide HCl 10 mg 10/01/21 18:53 Metoclopramide 10 Mg Tab PO Q6H PRN Nausea And Vomiting Ondansetron HCl 4 mg 10/01/21 18:53 Ondansetron 4 Mg/2 Ml Inj IV Q8H PRN Nausea And Vomiting Oxycodone/Acetaminophen 1 tab 10/01/21 18:53 Oxycodone /Acetaminophen 5-325mg Tab PO Q16H PRN Pain, Moderate (4-6) Promethazine HCl 25 mg 10/01/21 18:53 Promethazine 25 Mg Rect Supp OR Q6H PRN Nausea And Vomiting Sodium Chloride 10 ml 10/01/21 18:53 Sodium Chloride 0.9% 10 Ml Flush Syringe IV PRN PRN LINE FLUSH
--- NOTE | 2021-10-03 09:52 | Magnetic Resonance Report ---
MR brain wo con INDICATION / CLINICAL INFORMATION: CVA, DIZZINESS, FREQUENT FAlls. TECHNIQUE: Multiplanar, multisequence MR images of the brain were obtained. COMPARISON: CTA head from 10/01/2021 FINDINGS: INTRACRANIAL: Gyriform restricted diffusion seen within the medial left superior frontal gyrus and tovar perior parietal lobule. No cortical vein thrombosis is identified. The superior sagittal sinus flow v oid is patent. Given that the finding is unilateral, metabolic and Small quantity of scattered T2 sig nal white matter hyperintensities, likely sequela from chronic microvascular disease. No hemorrhage. Ventricular caliber is normal. No extra-axial collection. No mass. No herniation. Major intracranial vascular flow voids are preserved. ORBITS: No significant abnormality of visualized orbits. SINUSES / MASTOIDS: No significant abnormality of visualized sinuses and mastoid air cells. ADDITIONAL FINDINGS: None. IMPRESSION: 1. Acute gyriform infarction involving the cortex of the medial left superior frontal gyrus and super ior parietal lobule. Retrospectively, there is thickening of the left A2 segment of the anterior cer ebral artery on prior CT head with high-grade stenosis and thus findings are most likely ischemic in etiology. No cerebral vein thrombus identified. Findings could also be related to underlying vasculit is, especially given patient's age. Correlate clinically. Signer Name: Amari Mtz MD Signed: 10/03/2021 9:48 AM Workstation Name: [id number]
[2021-10-03] MEDS: ASPIRIN 325 MG TAB PO SCH (10:05)
--- NOTE | 2021-10-03 12:01 | Vascular Lab Report ---
DUPLEX DOPPLER ULTRASOUND CAROTID, BILATERAL INDICATION / CLINICAL INFORMATION: stroke. COMPARISON: CTA neck 10/01/2021. FINDINGS: RIGHT CAROTID: Minimal atherosclerotic plaque. Mild intimal thickening. - PLAQUE ESTIMATE (%): < 50% - CCA velocity: 112 cm/sec. - ICA peak systolic velocity: 91 cm/sec. - ICA/CCA PSV Ratio: Less than 2. Right Vertebral Artery: Antegrade flow. LEFT CAROTID: Mild atherosclerotic plaque. Mild intimal thickening. - PLAQUE ESTIMATE (%): < 50% - CCA velocity: 114 cm/sec. - ICA peak systolic velocity: 82 cm/sec. - ICA/CCA PSV Ratio: Less than 2. Left Vertebral Artery: Antegrade flow. IMPRESSION: 1. Right Internal Carotid Artery: Less than 50% diameter stenosis. 2. Left Internal Carotid Artery: Less than 50% diameter stenosis. Velocity criteria are extrapolated from diameter data as defined by the Society of Radiologists in Ul trasound Consensus Conference, Radiology 2003; 229;340-346. NO STENOSIS (NORMAL) - Plaque = none; ICA PSV < 125 cm/sec; ICA/CCA PSV Ratio < 2.0 <50% STENOSIS - Plaque < 50%; ICA PSV < 125 cm/sec; ICA/CCA PSV Ratio < 2.0 50-69% STENOSIS - Plaque > 50%; ICA PSV = 125-230 cm/sec; ICA/CCA PSV Ratio = 2.0-4.0 >70% BUT <100% STENOSIS - Plaque > 50%; ICA PSV > 230 cm/sec; ICA/CCA PSV Ratio > 4.0 NEAR OCCLUSION - Plaque = visible lumen; ICA PSV = high/low/none; ICA/CCA PSV Ratio = variable TOTAL OCCLUSION - Plaque = no lumen; ICA PSV = none; ICA/CCA PSV Ratio = N/A Scribed by: Naya Vega RDMS, RVT, RMSKS Scribed: 10/03/2021 10:05 AM I have reviewed the images, agree with this report, and edited this report as needed. Signer Name: Giuseppe Barba MD Signed: 10/03/2021 11:57 AM Workstation Name: [id number]
[2021-10-03 15:34] LABS: Chol/HDL Ratio 3.48 %
--- NOTE | 2021-10-03 16:19 | Vascular Lab Report ---
DUPLEX DOPPLER LOWER EXTREMITY VEINS, BILATERAL INDICATION / CLINICAL INFORMATION: CVA with PFO. TECHNIQUE: Duplex doppler imaging was performed through the veins of both lower extremities using ena ous compression and other maneuvers. COMPARISON: None available. FINDINGS: RIGHT COMMON FEMORAL VEIN: Negative. RIGHT FEMORAL VEIN: Negative. RIGHT POPLITEAL VEIN: Negative. RIGHT CALF VEINS: Negative. LEFT COMMON FEMORAL VEIN: Negative. LEFT FEMORAL VEIN: Negative. LEFT POPLITEAL VEIN: Negative. LEFT CALF VEINS: Negative. ADDITIONAL FINDINGS: None. IMPRESSION: 1. No sonographic evidence for DVT in either lower extremity. Scribed by: Naya Vega RDMS, DARLEEN, WALTER Scribed: 10/03/2021 2:59 PM I have reviewed the images, agree with this report, and edited this report as needed. Signer Name: Hugo Wick MD Signed: 10/03/2021 4:15 PM Workstation Name: [id number]
[2021-10-04] MEDS: ASPIRIN 325 MG TAB PO SCH (10:46)
[2021-10-04] MEDS: amLODIPine 5 MG TAB PO SCH (10:46)
--- NOTE | 2021-10-04 12:27 | Progress Note ---
Assessment and Plan Assessment and Plan 46 YO Male with No PMH presents to ED for evaluation. Patient reports "I get dizzy and I passed out". Patient states that he was in his usual state of health and experienced a sudden onset of dizziness followed by loss of consciousness. Patient awakened to have slurred speech with right-sided weakness. EMS was notified and upon arrival the patient was found to be in distress with a neurologic deficit. A code stroke was called and the patient was transported to [facility] for further care and evaluation of the aforementioned symptoms. The patient was seen and evaluated in the emergency department. All lab and imaging studies reviewed. Patient found to have symptoms consistent with CVA. The patient was admitted to telemetry and initiated on CVA protocol due to increased risk of worsening symptoms. Patient denies fever, chills, chest pain, palpitation, productive cough, skin rash or recent contact, trauma, known exposure to COVID-19. No prior admission for review. No medication listed at time of admission for reconciliation. Advanced care planning conducted in ED. Teleneurology consulted in ED. - Patient Problems #CVA (cerebral vascular accident)he is with residual right leg clumsiness and numbness -CT brain is unremarkable -CTA is remarkable for stenosis in left MCA biforcation and A1 segment stenosis -echo is remarkable for Ef#55-60%, with positive PFO and possible atrial aneurysm!!! -MRI brain is remarkable for left superior frontal and parietal infarct acute. -pt. is not a candidate for thrombectomy nor TPA -started on ASA 325 mg daily -Lipitor 40 mg daily -LDL is pending -US carotid is <50% stenosis -cardioac monitering -PT/ST evaluate -UDS is unremarkable #Hx of hyperlipidemia -Lipid profil is pending -Lipitor 40 mg # DVT prophylaxis -SCD to bilateral lower extremities while in bed Plan 1-maintain current med 2- WYATT 3- Pt therapy will follow Subjective Date of service: 10/04/21 Interval history: doing well still with slight right leg clumsiness , evaluated by PT echo is noted will schedule for WYATT Objective - Vital Sign Vital Signs - 12hr 10/04/21 10/04/21 10/04/21 00:43 03:52 07:57 Temperature 98.1 F 98.4 F Pulse Rate 62 63 68 Respiratory 16 16 Rate Blood Pressure 137/75 115/76 117/68 O2 Sat by Pulse 99 97 98 Oximetry 10/04/21 10:00 Temperature Pulse Rate 63 Respiratory Rate Blood Pressure O2 Sat by Pulse 98 Oximetry - General Apperance Constitutional: comfortable - EENT EENT: PERRL, mucous membranes moist - Respiratory Respiratory: lungs clear, rhonchi - Cardiovascular Cardiovascular: regular rate, normal S1, normal S2 Extremities: no peripheral edema bilat, no clubbing, cyanosis - Gastrointestinal Gastrointestinal: normoactive bowel sounds - Integumentary Integumentary: normal - Neurologic Cranial nerve examination: PERRL, EOMI Speech examination: intact Detailed motor examination: other (slight right leg clumsiness .gait slightly unsteady) - Laboratory Findings CBC and BMP: 10/01/21 16:35 10/01/21 16:35 Abnormal Lab Findings: Abnormal Labs 10/01/21 10/01/21 10/01/21 16:35 16:35 19:05 RBC 5.23 H [place] % (Auto) 9.8 H Sodium 135 L Glucose 141 H Total Creatine Kinase 375 H 399 H Cholesterol LDL Cholesterol Direct Urine pH 10/01/21 10/01/21 10/03/21 22:32 Unknown 14:31 RBC [place] % (Auto) Sodium Glucose Total Creatine Kinase 366 H Cholesterol 202 H LDL Cholesterol Direct 132 H Urine pH 8.0 H
[2021-10-04 13:24] LABS: Basophils % (Auto) 0.5 % (0.0-1.8); Eosinophils # (Auto) 0.1 K/mm3 (0.0-0.4); Eosinophils % (Auto) 1.1 % (0.0-4.3); Hematocrit 48.1 % (35.5-45.6); Hemoglobin 15.5 gm/dl (11.8-15.2); Lymphocytes # (Auto) 2.1 K/mm3 (1.2-5.4); Lymphocytes % (Auto) 26.8 % (13.4-35.0); Mean Corpuscular HGB Conc 32 % (32-34); Mean Corpuscular Volume 86 fl (84-94); Monocytes # (Auto) 0.6 K/mm3 (0.0-0.8); Monocytes % (Auto) 7.7 % (0.0-7.3); Platelet Count 210 K/mm3 (140-440); Red Blood Count 5.57 M/mm3 (3.65-5.03); Red Cell Distribution Width 13.6 % (13.2-15.2)
[2021-10-04 13:39] LABS: Alanine Aminotransferase 39 units/L (7-56); Albumin 4.5 g/dL (3.9-5); BUN/Creatinine Ratio 18; Blood Urea Nitrogen 18 mg/dL (9-20); Calcium 9.3 mg/dL (8.4-10.2); Hemolysis Index 12
[2021-10-04 13:41] LABS: Erythrocyte Sedimentation Rate 2 mm/Hr (0-20)
[2021-10-04 13:49] LABS: C-Reactive Protein < 0.03 mg/dL (0.00-1.30)
--- NOTE | 2021-10-04 19:41 | Progress Note ---
Assessment and Plan Assessment and plan: 46 YO Male with No PMH presents to ED for evaluation of slurred speech with right-sided weakness. EMS was notified and upon arrival the patient was found to be in distress with a neurologic deficit. A code stroke was called and the patient was transported to [facility] for further care and evaluation of the aforementioned symptoms. The patient was seen and evaluated in the emergency department. All lab and imaging studies reviewed. Blood pressure in the emergency department was noted to be as high as 205/110. Patient found to have symptoms consistent with CVA. The patient was admitted to telemetry and initiated on CVA protocol due to increased risk of worsening symptoms. Right CVA, presenting with speech disturbance, mild lower facial weakness, mild right hand/arm weakness and significant weakness in right lower extremity with numbness and limping gait. Was not a TPA candidate. Symptoms improving. MRI brain showed left TUCKER high-grade stenosis and CTA showed narrowing of left MCA. Echo showed normal LVEF but patent PFO and possible atrial septal aneurysm. To rule out vasculitis, YOUNG ordered. Accelerated hypertension. (Undiagnosed), controlled on amlodipine Obesity Daily events: 10/02/2021. Continue CVA protocol. CTA of the head and neck reveals focal area of narrowing suggested in MCA trifurcation branch on the right. Follow-up echocardiogram and order MRI. We will also order neurology consultation. PT/OT. Continue secondary prevention with aspirin and Lipitor. Allow for permissive hypertension for now and then start antihypertensive medications 10/03/2021. Await MRI brain for further evaluation. Neurology consultation pending. Echocardiogram reveals LVEF of 55 to 60% and no evidence of thromboembolic disease. However saline bubble contrast demonstrates PFO. We will check bilateral lower extremity Dopplers. BP much better controlled and off medications. Patient with transient accelerated hypertension. We will start low-dose beta-brianna for now. PT/OT. Continue secondary prevention with aspirin and Lipitor. 10/04:Patient reports speech disturbance almost resolved. Right hand/arm weakness much improved but right lower extremity weakness with numbness and limping gait not as much improved. BP controlled. MRI brain showed left TUCKER high-grade stenosis and CTA showed narrowing of left MCA. Echo showed normal LV EF but patent PFO and possible atrial septal aneurysm. Scheduled for WYATT tomorrow. Neurology is following. Discussed with the patient. History Interval history: Patient reports speech disturbance almost resolved. Right hand/arm weakness much improved but right lower extremity weakness with numbness and limping gait not as much improved. BP controlled. MRI brain showed left TUCKER high-grade stenosis and CTA showed narrowing of left MCA. Echo showed normal LVEF but patent PFO and possible atrial septal aneurysm. Scheduled for WYATT tomorrow. Neurology is following. Hospitalist Physical - Constitutional Vitals: Temp Pulse Resp BP Pulse Ox 98.7 F 68 18 120/66 99 10/04/21 15:59 10/04/21 15:59 10/04/21 15:59 10/04/21 15:59 10/04/21 15:59 General appearance: Present: no acute distress, obese - EENT Eyes: Present: PERRL, EOM intact ENT: other (Mild right lower facial weakness.) - Neck Neck: Present: supple - Respiratory Respiratory effort: normal Respiratory: bilateral: CTA - Cardiovascular Rhythm: regular - Extremities Extremities: No edema - Abdominal General gastrointestinal: soft, non-tender - Integumentary Integumentary: Absent: rash - Neurologic Neurologic: other (Alert and oriented, normal speech, mild right lower facial weakness, 5/5 strength in the right upper extremity, normal [id number] test, -4/5 strength in right lower extremity with a drift. Gait not tested.) HEART Score - HEART Score Troponin: Troponin T < 0.010 ng/mL (0.00-0.029) 10/01/21 22:32 Results - Labs CBC & Chem 7: 10/04/21 12:26 10/04/21 12:26 Labs: Laboratory Last Values WBC 7.8 K/mm3 (4.5-11.0) 10/04/21 12: RBC 5.57 M/mm3 (3.65-5.03) H 10/04/21 12:26 Hgb 15.5 gm/dl (11.8-15.2) H 10/04/21 12:26 Hct 48.1 % (35.5-45.6) H 10/04/21 12: MCV 86 fl (84-94) 10/04/21 12:26 MCH 28 pg (28-32) 10/04/21 12: MCHC 32 % (32-34) 10/04/21 12: RDW 13.6 % (13.2-15.2) 10/04/21 12:26 Plt Count 210 K/mm3 (140-440) 10/04/21 12: Lymph % (Auto) 26.8 % (13.4-35.0) 10/04/21 12: [place] % (Auto) 7.7 % (0.0-7.3) H 10/04/21 12: Eos % (Auto) 1.1 % (0.0-4.3) 10/04/21 12: Baso % (Auto) 0.5 % (0.0-1.8) 10/04/21 12: Lymph # (Auto) 2.1 K/mm3 (1.2-5.4) 10/04/21 12: [place] # (Auto) 0.6 K/mm3 (0.0-0.8) 10/04/21 12: Eos # (Auto) 0.1 K/mm3 (0.0-0.4) 10/04/21 12: Baso # (Auto) 0.0 K/mm3 (0.0-0.1) 10/04/21 12: Seg Neutrophils % 63.9 % (40.0-70.0) 10/04/21 12: Seg Neutrophils # 5.0 K/mm3 (1.8-7.7) 10/04/21 12: ESR 2 mm/Hr (0-20) 10/04/21 12: PT 13.9 Sec. (12.2-14.9) 10/01/21 16:35 INR 0.96 (0.87-1.13) 10/01/21 16:35 APTT 26.4 Sec. (24.2-36.6) 10/01/21 16:35 Thrombin Time 17.5 Sec. (15.1-19.6) 10/01/21 16:35 Sodium 141 mmol/L (137-145) 10/04/21 12: Potassium 3.9 mmol/L (3.6-5.0) 10/04/21 12: Chloride 100.1 mmol/L (98-107) 10/04/21 12: Carbon Dioxide 25 mmol/L (22-30) 10/04/21 12: Anion Gap 20 mmol/L 10/04/21 12:26 BUN 18 mg/dL (9-20) 10/04/21 12: Creatinine 1.0 mg/dL (0.8-1.3) 10/04/21 12: Estimated GFR > 60 ml/min 10/04/21 12: BUN/Creatinine Ratio 18 % 10/04/21 12: Glucose 110 mg/dL (75-100) H 10/04/21 12: Calcium 9.3 mg/dL (8.4-10.2) 10/04/21 12: Total Bilirubin 0.50 mg/dL (0.1-1.2) 10/04/21 12: AST 40 units/L (5-40) 10/04/21 12: ALT 39 units/L (7-56) 10/04/21 12: Alkaline Phosphatase 127 units/L (35-129) 10/04/21 12: Total Creatine Kinase 366 units/L (55-170) H 10/01/21 22:32 CK-MB (CK-2) 2.4 ng/mL (0.0-4.0) 10/01/21 22: CK-MB (CK-2) Rel Index 0.6 (0-4) 10/01/21 22: Troponin T < 0.010 ng/mL (0.00-0.029) 10/01/21 22: C-Reactive Protein < 0.03 mg/dL (0.00-1.30) 10/04/21: Total Protein 7.6 g/dL (6.3-8.2) 10/04/21 12: Albumin 4.5 g/dL (3.9-5) 10/04/21 12: Albumin/Globulin Ratio 1.5 % 10/04/21 12: Triglycerides 74 mg/dL (2-149) 10/03/21 14:31 Cholesterol 202 mg/dL (50-199) H 10/03/21 14:31 LDL Cholesterol Direct 132 mg/dL (50-130) H 10/03/21 14:31 HDL Cholesterol 58 mg/dL (40-59) 10/03/21 14:31 Cholesterol/HDL Ratio 3.48 % 10/03/21 14:31 Urine Color Colorless (Yellow) 10/01/21 Unknown Urine Turbidity Clear (Clear) 10/01/21 Unknown Urine pH 8.0 (5.0-7.0) H 10/01/21 Unknown Ur Specific [place] 1.005 (1.003-1.030) 10/01/21 Unknown Urine Protein <15 mg/dl mg/dL (Negative) 10/01/21 Unknown Urine Glucose (UA) Neg mg/dL (Negative) 10/01/21 Unknown Urine Ketones Neg mg/dL (Negative) 10/01/21 Unknown Urine Blood Neg (Negative) 10/01/21 Unknown Urine Nitrite Neg (Negative) 10/01/21 Unknown Urine Bilirubin Neg (Negative) 10/01/21 Unknown Urine Urobilinogen < 2.0 mg/dL (<2.0) 10/01/21 Unknown Ur Leukocyte Esterase Neg (Negative) 10/01/21 Unknown Urine WBC (Auto) 1.0 /HPF (0.0-6.0) 10/01/21 Unknown Urine RBC (Auto) 1.0 /HPF (0.0-6.0) 10/01/21 Unknown Urine Opiates Screen Negative 10/01/21 Unknown Urine Methadone Screen Negative 10/01/21 Unknown Ur Barbiturates Screen Negative 10/01/21 Unknown Ur Phencyclidine Scrn Negative 10/01/21 Unknown Ur Amphetamines Screen Negative 10/01/21 Unknown U Benzodiazepines Scrn Negative 10/01/21 Unknown Urine Cocaine Screen Negative 10/01/21 Unknown U Marijuana (THC) Screen Negative 10/01/21 Unknown Drugs of Abuse Note Disclamer 10/01/21 Unknown Plasma/Serum Alcohol < 0.01 % (0-0.07) 10/01/21 16:35 Parker/IV: Voiding Method Toilet Active Medications - Current Medications Current Medications: Generic Name Dose Route Start Last Admin Trade Name Freq PRN Reason Stop Dose Admin Acetaminophen 650 mg 10/01/21 18:53 Acetaminophen 325 Mg Tab PO Q4H PRN Pain, Mild (1-3) Albuterol 2.5 mg 10/01/21 18:53 Albuterol 2.5 Mg/3 Ml Nebu IH Q3HRT PRN Shortness Of Breath Amlodipine Besylate 5 mg 10/04/21 10:00 10/04/21 10:46 Amlodipine 5 Mg Tab PO 5 mg QDAY JEFFREY Administration Aspirin 325 mg 10/02/21 10:00 10/04/21 10:46 Aspirin 325 Mg Tab PO 325 mg QDAY JEFFREY Administration Atorvastatin Calcium 40 mg 10/01/21 22:00 10/03/21 21:53 Atorvastatin 40 Mg Tab PO 40 mg QHS JEFFREY Administration Bisacodyl 10 mg 10/01/21 18:53 Bisacodyl 10 Mg Rect Supp UT QDAY PRN Constipation Magnesium Hydroxide 30 ml 10/01/21 18:53 Magnesium Hydroxide (Mom) Oral Liqd Udc PO Q4H PRN Constipation Ondansetron HCl 4 mg 10/01/21 18:53 Ondansetron 4 Mg/2 Ml Inj IV Q8H PRN Nausea And Vomiting Sodium Chloride 10 ml 10/01/21 18:53 10/04/21 10:46 Sodium Chloride 0.9% 10 Ml Flush Syringe IV 10 ml PRN PRN Administration LINE FLUSH
[2021-10-05] MEDS ORDERED: propofoL 200 MG/20 ML VIAL IV ONE ×2 (07:19)
--- NOTE | 2021-10-05 07:30 | Anesthesia Day of Surgery ---
Anesthesia Day of Surgery - Day of Surgery Patient Examined: Yes Patient H&P Reviewed: Yes Patient is NPO: Yes
--- NOTE | 2021-10-05 07:30 | Anesthesia Consultation ---
Anesthesia Consult and Med Hx Date of service: 10/05/21 - Airway Anesthetic Teeth Evaluation: Good (some missing teeth) ROM Head & Neck: Adequate Mental/Hyoid Distance: Adequate Mallampati Class: Class III Intubation Access Assessment: Possibly Difficult - Pre-Operative Health Status ASA Pre-Surgery Classification: ASA3 - Pulmonary Hx Smoking: Yes (1 pack/month) - Cardiovascular System Hx Hypertension: Yes - Central Nervous System CVA: Yes (10/01/21 - right side weakness) - Other Systems Hx Obesity: Yes (overweight)
[2021-10-05] MEDS ORDERED: SODIUM CHLORIDE 0.9% 1000 ML 1,000 ML IV SCH (08:00)
[2021-10-05] MEDS ORDERED: BENZOCAINE 20% TOP SPRAY 0.5 ML UNIT DOSE MM NR (08:00)
--- NOTE | 2021-10-05 09:05 | Post Anesthesia Evaluation ---
- Post Anesthesia Evaluation Patient Participated: Yes Airway Patent: Yes Stable Respiratory Function: Yes Nausea/Vomiting: No Temp > 96.8F: Yes Pain Manageable: Yes Adequeate Hydration: Yes Anesthesia Complications: No Block Receding Appropriately: Not Applicable Patient on Ventilator: No
--- NOTE | 2021-10-05 09:43 | Progress Note ---
Assessment and Plan Assessment and Plan 46 YO Male with No PMH presents to ED for evaluation. Patient reports "I get dizzy and I passed out". Patient states that he was in his usual state of health and experienced a sudden onset of dizziness followed by loss of consciousness. Patient awakened to have slurred speech with right-sided weakness. EMS was notified and upon arrival the patient was found to be in distress with a neurologic deficit. A code stroke was called and the patient was transported to [facility] for further care and evaluation of the aforementioned symptoms. The patient was seen and evaluated in the emergency department. All lab and imaging studies reviewed. Patient found to have symptoms consistent with CVA. The patient was admitted to telemetry and initiated on CVA protocol due to increased risk of worsening symptoms. Patient denies fever, chills, chest pain, palpitation, productive cough, skin rash or recent contact, trauma, known exposure to COVID-19. No prior admission for review. No medication listed at time of admission for reconciliation. Advanced care planning conducted in ED. Teleneurology consulted in ED. - Patient Problems #CVA (cerebral vascular accident)he is with residual right leg clumsiness and numbness -CT brain is unremarkable -CTA is remarkable for stenosis in left MCA biforcation and A1 segment stenosis -echo is remarkable for Ef#55-60%, with positive PFO and possible atrial aneurysm!!! -MRI brain is remarkable for left superior frontal and parietal infarct acute. -pt. is not a candidate for thrombectomy nor TPA -started on ASA 325 mg daily -Lipitor 40 mg daily -LDL is pending -US carotid is <50% stenosis -cardioac monitering -PT/ST evaluate -UDS is unremarkable #Hx of hyperlipidemia -LDL#132 -Lipitor 40 mg # DVT prophylaxis -SCD to bilateral lower extremities while in bed Plan 1-maintain current med. 2- WYATT is noted no thrombus positive for sacualr aneurysm left atrium,D/W cardiology 3- Pt therapy 4- follow up with cardiology and neurology will sign off Subjective Date of service: 10/05/21 Interval history: doing well still with slight right leg clumsiness , evaluated by PT echo is noted WYATT done this am , D/W mandate no thrombus and recommendation is ASA and Lipitor Objective - Vital Sign Vital Signs - 12hr 10/05/21 10/05/21 10/05/21 00:13 04:17 07:34 Temperature 98.1 F 98.8 F Temperature [ Post-Procedure] Temperature [ 98.7 F Pre-Procedure] Pulse Rate 67 72 Pulse Rate [ Post-Procedure] Pulse Rate [Pre 72 -Procedure] Respiratory 18 18 Rate Respiratory Rate [Post- Procedure] Respiratory 16 Rate [Pre- Procedure] Blood Pressure 117/64 135/77 Blood Pressure [Post-Procedure ] Blood Pressure 126/73 [Pre-Procedure] O2 Sat by Pulse 99 99 Oximetry O2 Sat by Pulse Oximetry [Post -Procedure] O2 Sat by Pulse 100 Oximetry [Pre- Procedure] 10/05/21 10/05/21 10/05/21 07:59 08:15 08:30 Temperature Temperature [ 99.3 F Post-Procedure] Temperature [ Pre-Procedure] Pulse Rate Pulse Rate [ 73 72 67 Post-Procedure] Pulse Rate [Pre -Procedure] Respiratory Rate Respiratory 20 20 14 Rate [Post- Procedure] Respiratory Rate [Pre- Procedure] Blood Pressure Blood Pressure 125/78 134/81 133/76 [Post-Procedure ] Blood Pressure [Pre-Procedure] O2 Sat by Pulse Oximetry O2 Sat by Pulse 99 99 99 Oximetry [Post -Procedure] O2 Sat by Pulse Oximetry [Pre- Procedure] - General Apperance Constitutional: comfortable - EENT EENT: PERRL, mucous membranes moist - Respiratory Respiratory: chest non-tender, lungs clear, rhonchi - Cardiovascular Cardiovascular: regular rate, normal S1, normal S2 Extremities: no peripheral edema bilat, no clubbing, cyanosis - Gastrointestinal Gastrointestinal: normoactive bowel sounds - Integumentary Integumentary: normal - Neurologic Cranial nerve examination: PERRL, EOMI, intact Speech examination: intact Detailed motor examination: grossly full strength in, other (slight clumsiness right lower extremity, gait slightly unsteady) - Laboratory Findings CBC and BMP: 10/04/21 12:26 10/04/21 12:26 Abnormal Lab Findings: Abnormal Labs 10/01/21 10/01/21 10/01/21 16:35 16:35 19:05 RBC 5.23 H Hgb Hct [place] % (Auto) 9.8 H Sodium 135 L Glucose 141 H Total Creatine Kinase 375 H 399 H Cholesterol LDL Cholesterol Direct Urine pH 10/01/21 10/01/21 10/03/21 22:32 Unknown 14:31 RBC Hgb Hct [place] % (Auto) Sodium Glucose Total Creatine Kinase 366 H Cholesterol 202 H LDL Cholesterol Direct 132 H Urine pH 8.0 H 10/04/21 10/04/21 12:26 12:26 RBC 5.57 H Hgb 15.5 H Hct 48.1 H [place] % (Auto) 7.7 H Sodium Glucose 110 H Total Creatine Kinase Cholesterol LDL Cholesterol Direct Urine pH
[2021-10-05] MEDS: ASPIRIN 325 MG TAB PO SCH (12:29)
[2021-10-05] MEDS: amLODIPine 5 MG TAB PO SCH (12:29)
--- NOTE | 2021-10-05 17:19 | Electrocardiograph Report ---
[facility] Test Date: 2021-10-02 Test Time: 07:57:00 Pat Name: DELMY CAT Department: Room: A470 1 Gender: M Senior Director: DOROTHY : 1975 Requested By: DEJA BROOKS Order Number: [id number] Reading MD: Mindy Chung Measurements Intervals [place] Rate: 78 P: 81 IN: 146 QRS: 19 QRSD: 77 T: 33 QT: 366 QTc: 417 Interpretive Statements Sinus rhythm Probable left atrial enlargement No previous ECG available for comparison Electronically Signed On 10-05-2021 17:18:58 EST by Mindy Chung
--- NOTE | 2021-10-05 19:07 | Discharge Summary ---
Providers - Providers Date of Admission: 10/01/21 18:53 Attending physician: KITTY LORA MD 10/01/21 18:53 Occupational Therapy Evaluate and Treat [CONS] Routine Comment: Reason For Exam: Neuro deficits Physical Therapy Evaluation and Treat [CONS] Routine Comment: Reason For Exam: Neuro deficits 10/01/21 18:54 Speech Therapy Evaluation and Treat [CONS] Routine Reason For Exam: swallow eval 10/03/21 08:00 Consult to Physician [CONS] Routine Comment: Consulting Provider: JOHNNY BARNES Physician Instructions: Reason For Exam: CVA Primary care physician: [employer] LEADER Hospitalization Condition: Stable Disposition: 01 HOME / SELF CARE / HOMELESS Exam - Constitutional Vitals: Temp Pulse Resp BP Pulse Ox 98.7 F 86 18 144/91 98 10/05/21 17:31 10/05/21 17:31 10/05/21 17:31 10/05/21 17:31 10/05/21 17:31 Plan Activity: advance as tolerated Diet: low fat, low cholesterol, low salt Additional Instructions: See a neurologist in 2 to 4 weeks for follow-up. Observe fall precautions until your leg strength improves and walking gait stable. Continue outpatient physical therapy as recommended Follow up with: PRIMARY CAREMD [Primary Care Provider] - 7 Days
[2021-10-05 20:08] VITALS: BP 122/70
[2021-10-07 04:55] LABS: ANA Screen, IFA Negative (Negative)
== END 2021-10-05 22:25 | disposition home or self-care (01) | DRG 65 ==
LOC: ED 16:15 → 4A 18:53
PROVIDERS: ADMIT Internal Medicine; ATTEND Internal Medicine
DX: I63.9 Cerebral infarction, unspecified (principal); G81.91 Hemiplegia, unspecified affecting right dominant side; Q21.1 Atrial septal defect; I16.0 Hypertensive urgency; I10 Essential (primary) hypertension; E78.5 Hyperlipidemia, unspecified; E66.9 Obesity, unspecified; Z68.29 Body mass index [BMI] 29.0-29.9, adult; Z87.891 Personal history of nicotine dependence; Z82.49 Family history of ischemic heart disease and other diseases of the circulatory system
CPT/HCPCS: 36415; 70450; 70496; 70498; 70551; 71045; 80053; 80061; 80307; 80320; 81001; 82550; 82553; 84484; 85025; 85610; 85652; 85670; 85730; 86038; 86140; 93005; 93010; 93306; 93312; 93320; 93325; 93880; 93970; 99406; G0378; J7120; Q0162; C8929; G0480; J2704; J7030; Q9967